=== PATIENT | female | born 1995 | race Caucasian/White ===

== ENCOUNTER 2016-12-14 19:02 | Emergency (ER) | payer OTHER ==
[2016-12-14] MEDS ORDERED: Sodium Chloride 0.9% 1000 ML 1,000 ML IV STA (19:21)
[2016-12-14] MEDS ORDERED: Sodium Chloride 0.9% 1000 ML 1,000 ML ONE (19:26)
--- NOTE | 2016-12-14 19:26 | ERPHSYRPT ---
- History of Present Illness Time Seen by Provider: 12/14/16 19:24 Source: patient Exam Limitations: no limitations Patient Subjective Stated Complaint: felt dizzy and hot earlier this evening..staes did not paass out 18 weeks . denies pain or bleeding Triage Nursing Assessment: alert and oriented. color pink, skin w/d. states feels "blah" denies abdominal pain and bleeding. Physician History: felt dizzy and hot earlier this evening..staes did not paass out 18 weeks . denies pain or bleeding Timing/Duration: today Associated Symptoms: denies symptoms Allergies/Adverse Reactions: No Known Drug Allergies Allergy (Unverified 08/07/14 22:22) Home Medications: Clonazepam 0.5 mg [Klonopin 0.5 MG] 0.5 mg PO BID 09/18/13 [History] Hx Tetanus, Diphtheria Vaccination/Date Given: No Hx Influenza Vaccination/Date Given: No Hx Pneumococcal Vaccination/Date Given: Yes - Review of Systems Constitutional: No Fever, No Chills Eyes: No Symptoms Ears, Nose, & Throat: No Symptoms Respiratory: No Cough, No Dyspnea Cardiac: No Chest Pain, No Edema, No Syncope Abdominal/Gastrointestinal: No Abdominal Pain, No Nausea, No Vomiting, No Diarrhea Genitourinary Symptoms: No Dysuria Musculoskeletal: No Back Pain, No Neck Pain Skin: No Rash Neurological: Dizziness, No Focal Weakness, No Sensory Changes Psychological: No Symptoms Endocrine: No Symptoms All Other Systems: Reviewed and Negative - Past Medical History Pertinent Past Medical History: Yes Neurological History: No Pertinent History ENT History: No Pertinent History Cardiac History: No Pertinent History Respiratory History: No Pertinent History Endocrine Medical History: No Pertinent History Musculoskeletal History: No Pertinent History GI Medical History: No Pertinent History History: No Pertinent History Psycho-Social History: Anxiety Female Reproductive Disorders: Abnormal Uterine Bleeding - Past Surgical History Past Surgical History: Yes Neuro Surgical History: No Pertinent History Cardiac: No Pertinent History Respiratory: No Pertinent History Gastrointestinal: No Pertinent History Genitourinary: No Pertinent History Musculoskeletal: No Pertinent History Female Surgical History: No Pertinent History Other Surgical History: TONSILLECTOMY - Social History Smoking Status: Current every day smoker How long have you smoked: 2 Exposure to second hand smoke: No Drug Use: none Patient Lives Alone: No - Female History Gestational Age: 18 weeks - Nursing Vital Signs Nursing Vital Signs: Initial Vital Signs Pulse Rate 88 12/14/16 19:08 Respiratory Rate 16 12/14/16 19:08 Blood Pressure 139/65 12/14/16 19:08 O2 Sat by Pulse Oximetry 100 12/14/16 19:08 Pain Scale Pain Intensity 0 - Physical Exam General Appearance: no apparent distress, alert Eye Exam: PERRL/EOMI, eyes nml inspection Ears, Nose, Throat Exam: normal ENT inspection, TMs normal, pharynx normal, moist mucous membranes Neck Exam: normal inspection, non-tender, supple, full range of motion Respiratory Exam: normal breath sounds, lungs clear, No respiratory distress Cardiovascular Exam: regular rate/rhythm, normal heart sounds, normal peripheral pulses Gastrointestinal/Abdomen Exam: soft, normal bowel sounds, No tenderness, No mass Back Exam: normal inspection, normal range of motion, No CVA tenderness, No vertebral tenderness Extremity Exam: normal inspection, normal range of motion, pelvis stable Neurologic Exam: alert, oriented x 3, cooperative, normal mood/affect, nml cerebellar function, nml station & gait, sensation nml, No motor deficits Skin Exam: normal color, warm, dry, No rash Lymphatic Exam: No adenopathy SpO2: 100 Oxygen Delivery: Room Air - Course Nursing assessment & vital signs reviewed: Yes Ordered Tests: Active Orders 24 hr Category Date Time Status CBC W DIFF Stat Lab 12/14/16 19:30 Completed CMP Stat Lab 12/14/16 19:30 Received HCG QUALITATIVE,SERUM Stat Lab 12/14/16 19:30 Received Manual Differential NC Stat Lab 12/14/16 19:30 Completed UA W/RFX UR CULTURE Stat Lab 12/14/16 19:30 Completed Urine Triage Profile Stat Lab 12/14/16 19:30 Completed Medication Summary Generic Name Dose Route Start Last Admin Trade Name Freq PRN Reason Stop Dose Admin Sodium Chloride 1,000 mls @ 999 mls/hr 12/14/16 19:21 12/14/16 19:39 Sodium Chloride 0.9% 1000 Ml IV 12/14/16 20:21 999 mls/hr .Q1H1M STA Administration Discontinued Medications Generic Name Dose Route Start Last Admin Trade Name Freq PRN Reason Stop Dose Admin Sodium Chloride Confirm 12/14/16 19:26 Sodium Chloride 0.9% 1000 Ml Administered 12/14/16 19:27 Dose 1,000 mls @ ud .ROUTE .STK-MED ONE Lab/Rad Data: Laboratory Result Diagrams 12/14/16 19:30 Laboratory Results 12/14/16 12/14/16 12/14/16 Range/Units 19:30 19:30 19:30 WBC 14.1 H (4.0-10.5) K/mm3 RBC 4.00 L (4.1-5.4) M/mm3 Hgb 12.1 (12.0-16.0) gm/dl Hct 35.5 (35-47) % MCV 88.8 (78-100) fl MCH 30.2 (26-32) pg MCHC 34.1 (32-36) g/dl RDW 13.0 (11.5-14.0) % Plt Count 238 (150-450) K/mm3 MPV 10.0 H (6-9.5) fl Ur Collection Type VOID Urine Color YELLOW (YELLOW) Urine Appearance CLEAR (CLEAR) Urine pH 5.0 (5-6) Ur Specific [place] 1.015 (1.005-1.025) Urine Protein NEGATIVE (Negative) Urine Ketones NEGATIVE (NEGATIVE) Urine Blood NEGATIVE (0-5) Misha/ul Urine Nitrite NEGATIVE (NEGATIVE) Urine Bilirubin NEGATIVE (NEGATIVE) Urine Urobilinogen NORMAL (0-1) mg/dL Ur Leukocyte Esterase NEGATIVE (NEGATIVE) Urine Culture Reflexed NO (NO) Urine Glucose NEGATIVE (NEGATIVE) mg/dL Urine Opiates Level NEG. (NEGATIVE) Ur Methadone NEG. (NEGATIVE) Urine Barbiturates NEG. (NEGATIVE) Ur Phencyclidine (PCP) NEG. (NEGATIVE) Urine Amphetamine NEG. (NEGATIVE) U Benzodiazepine Level NEG. (NEGATIVE) Urine Cocaine NEG. (NEGATIVE) Urine Marijuana (THC) NEG. (NEGATIVE) Specimen Received 12/14/160 - Progress Progress: improved Counseled pt/family regarding: diagnosis, need for follow-up, smoking cessation - Departure Time of Disposition: 20:03 Departure Disposition: Home Clinical Impression: Dizziness, with 18 completed weeks gestation Leucocytosis Qualifiers: Leukocytosis type: other Qualified Code(s): D72.828 - Other elevated white blood cell count Condition: Stable Critical Care Time: No Referrals: JENNIFER GIFFORD MD [Primary Care Provider] - Additional Instructions: Please follow the instructions given to you. Please take your medication as prescribed if given. If symptoms recur or get worse, come back to the emergency room if you cannot reach your primary care physician, or call your primary care physician for an appointment. Again if your symptoms get worse, come back to the emergency room. Thanks for visiting emergency room, and let us take care of you. Prescriptions: Amoxicillin 500 mg Cap [Amoxil 500 mg] 500 mg PO TID #21 capsule
[2016-12-14 19:42] LABS: Mean Cell Volume 88.8 fl (78-100); Platelet Count 238 K/mm3 (150-450); White Blood Count 14.1 K/mm3 (4.0-10.5)
[2016-12-14 19:49] LABS: ADD URINE CULTURE? NO (NO); Bilirubin NEGATIVE (NEGATIVE); Blood NEGATIVE Ery/ul (0-5); COMPLETE URINE MICROSCOPIC? NO; Collection Type VOID; Glucose NEGATIVE (NEGATIVE); Leukocyte Esterase NEGATIVE (NEGATIVE)
[2016-12-14 19:55] LABS: Mean Corpuscular Hemoglobin 30.2 pg (26-32)
[2016-12-14 20:08] LABS: ALKALINE PHOSPHATASE 86 U/L (46-116); ANION GAP 14.1 MEQ/L (5-15); BLOOD UREA NITROGEN 7 mg/dL (9-20); CHLORIDE 103 mEq/L (98-107); Carbon Dioxide 22.9 mEq/L (21-32); Glucose 99 MG/DL (70-110); Potassium 3.3 mEq/L (3.5-5.1); SGOT/AST 15 U/L (15-37); SGPT/ALT 23 U/L (12-78); SODIUM 137 mEq/L (136-145); Total Protein 6.4 gm/dL (6.4-8.2)
[2016-12-14 20:16] LABS: ATYPICAL LYMPHS 1 %; BAND 5 % (0.0-2.0); Eosinophil 2 % (0.00-3.0); Platelet Estimate NORMAL (NORMAL); Total Cells Counted 100
[2016-12-14 20:17] VITALS: BP 142/77; PULSE 85; O2SAT 99
== END 2016-12-14 20:17 | disposition home or self-care (01) ==
LOC: ED 19:02
DX: O26.892 Other specified pregnancy related conditions, second trimester (principal); D72.828 Other elevated white blood cell count; Z3A.18 18 weeks gestation of pregnancy; R42 Dizziness and giddiness
CPT/HCPCS: 36000; 36415; 80053; 80307; 81002; 84703; 85025; 96360; 99284

== ENCOUNTER 2017-04-10 14:26 | Observation (INO) | payer OTHER ==
[2017-04-10 15:29] LABS: Granulocyte Absolute (ANC) 11.78 (1.4-6.9); Hematocrit 38.7 % (35-47); Hemoglobin 12.9 gm/dl (12.0-16.0); Mean Cell Volume 91.5 fl (78-100); Mean Corpuscular Hemoglobin 30.5 pg (26-32); Mean Corpuscular Hgb Concent. 33.3 g/dl (32-36); Mean Platelet Volume 12.2 fl (6-9.5); Platelet Count 194 K/mm3 (150-450); Red Blood Count 4.23 M/mm3 (4.1-5.4); Red Cell Distribution Width 13.5 % (11.5-14.0)
--- NOTE | 2017-04-10 15:50 | XRAY ---
Indication: Evaluate EFRAIN. Limited OB ultrasound performed to evaluate EFRAIN. There is a single viable intrauterine currently in cephalic presentation. heart rate 129 BPM. Four-quadrant EFRAIN is 16.5 cm, previously 10.6 cm on April 03, 2017 exam.
[2017-04-10 15:51] LABS: ALBUMIN 2.4 g/dL (3.4-5.0); ALKALINE PHOSPHATASE 177 U/L (46-116); ANION GAP 11.4 MEQ/L (5-15); BLOOD UREA NITROGEN 6 mg/dL (9-20); CHLORIDE 104 mEq/L (98-107); Calcium 9.5 mg/dL (8.5-10.1); Carbon Dioxide 26.9 mEq/L (21-32); Creatinine 1 0.66 mg/dl (0.55-1.30); EST GLOMERULAR FILTRATION RATE > 60 ML/MIN; Glucose 71 MG/DL (70-110); SGOT/AST 18 U/L (15-37); SGPT/ALT 11 U/L (12-78); SODIUM 138 mEq/L (136-145); Total Protein 6.4 gm/dL (6.4-8.2); Uric Acid 4.8 mg/dL (2.6-6.0)
[2017-04-10 16:56] LABS: Eosinophil 2 % (0.00-3.0); Lymphocytes 19 % (24-44); Monocyte 9 % (0.0-12.0); Neutrophils 70 % (36.0-66.0); Platelet Estimate NORMAL (NORMAL); Total Cells Counted 100; Toxic Granulation 1+
[2017-04-10 18:00] VITALS: BP 140/76; PULSE 85
== END 2017-04-10 18:02 ==
LOC: OB 14:26
PROVIDERS: ADMIT Family Medicine; ATTEND Family Medicine
DX: Z34.83 Encounter for supervision of other normal pregnancy, third trimester (principal)
CPT/HCPCS: 36415; 59025; 76815; 80053; 84550; 85025; G0378

== ENCOUNTER 2019-09-23 12:24 | Emergency (ER) | payer OTHER ==
--- NOTE | 2019-09-23 12:38 | ERPHSYRPT ---
- History of Present Illness Time Seen by Provider: 09/23/19 12:34 Source: patient Exam Limitations: no limitations Physician History: This is a 24-year-old white female who yesterday slipped on her steps injuring her left ankle. Patient went to [facility] and had an x-ray and she reports that she was told she has a left ankle sprain. They placed a ankle air splint and she has been wearing this since yesterday. Patient slipped today and twisted her left ankle again with the brace in place. She is concerned because there is more pain after her fall today. Patient denies any other area of injury. Method of Injury: fell Occurred: this morning Quality: constant, aching Severity of Pain-Max: moderate Severity of Pain-Current: mild Lower Extremities Pain: ankle: left Modifying Factors: Improves With: movement Associated Symptoms: other (Patient is able to bear weight but hurts to do so) Allergies/Adverse Reactions: No Known Drug Allergies Allergy (Verified 09/23/19 12:40) Home Medications: Norgestimate-Ethinyl Estradiol [Tri-Sprintec] 1 tab PO DAILY 09/23/19 [History] clonazePAM [Clonazepam] 0.5 mg PO TID 09/23/19 [History] Hx Tetanus, Diphtheria Vaccination/Date Given: No Hx Influenza Vaccination/Date Given: No Hx Pneumococcal Vaccination/Date Given: Yes Travel Risk - International Travel Have you traveled outside of the country in past 3 weeks: No (N) If Yes, where;: N - Coronavirus Screening Are you exhibiting any of the following symptoms?: No Close contact with a COVID-19 positive Pt in past 14-21 Days: No - Review of Systems Constitutional: No Symptoms Eyes: No Symptoms Ears, Nose, & Throat: No Symptoms Respiratory: No Symptoms Cardiac: No Symptoms Abdominal/Gastrointestinal: No Symptoms Genitourinary Symptoms: No Symptoms Musculoskeletal: Fall, Injury (Left ankle) Skin: No Symptoms Neurological: No Symptoms Psychological: No Symptoms Endocrine: No Symptoms Hematologic/Lymphatic: No Symptoms Immunological/Allergic: No Symptoms All Other Systems: Reviewed and Negative - Past Medical History Pertinent Past Medical History: Yes Neurological History: No Pertinent History ENT History: No Pertinent History Cardiac History: No Pertinent History Respiratory History: No Pertinent History Endocrine Medical History: No Pertinent History Musculoskeletal History: No Pertinent History GI Medical History: No Pertinent History History: No Pertinent History Psycho-Social History: Anxiety Female Reproductive Disorders: Abnormal Uterine Bleeding - Past Surgical History Past Surgical History: Yes Neuro Surgical History: No Pertinent History Cardiac: No Pertinent History Respiratory: No Pertinent History Gastrointestinal: No Pertinent History Genitourinary: No Pertinent History Musculoskeletal: No Pertinent History Female Surgical History: No Pertinent History Other Surgical History: TONSILLECTOMY - Social History Smoking Status: Current every day smoker How long have you smoked: 3 yrs Exposure to second hand smoke: Yes Drug Use: none Patient Lives Alone: No - Female History Hx Now: No - Nursing Vital Signs Nursing Vital Signs: Initial Vital Signs Temperature 98.5 F 09/23/19 12:31 Pulse Rate 71 09/23/19 12:31 Respiratory Rate 16 09/23/19 12:31 Blood Pressure 143/63 09/23/19 12:31 O2 Sat by Pulse Oximetry 99 09/23/19 12:31 Pain Scale Pain Intensity 8 - Physical Exam General Appearance: no apparent distress, alert, anxiety Eyes, Ears, Nose, Throat Exam: normal ENT inspection, moist mucous membranes Neck Exam: normal inspection, non-tender, supple, full range of motion Cardiovascular/Respiratory Exam: chest non-tender, no respiratory distress Gastrointestinal/Abdominal Exam: non-tender Back Exam: normal inspection, normal range of motion, No CVA tenderness, No vertebral tenderness Hips Exam: bilateral: non-tender, normal inspection, normal range of motion, no evidence of injury Legs Exam: bilateral leg: non-tender, normal inspection, normal range of motion, no evidence of injury Knees Exam: bilateral knee: non-tender, normal inspection, normal range of motion, no evidence of injury Ankle Exam: right ankle: non-tender, normal inspection, normal range of motion, no evidence of injury, left ankle: limited range of motion, soft tissue tenderness Foot Exam: bilateral foot: non-tender, normal inspection, normal range of motion, no evidence of injury Neuro/Tendon Exam: normal sensation, normal motor functions, normal tendon functions, responds to pain, no evidence tendon injury Mental Status Exam: alert, oriented x 3, cooperative Skin Exam: normal color, warm, dry SpO2 Interpretation: normal O2 Delivery: Room Air Ordered Tests: Active Orders 24 hr Category Date Time Status ANKLE (3 VIEWS) Stat Exams 09/23/19 12:32 Completed - Progress Progress Note: 09/23/19 13:03 X-ray of left ankle reveals no evidence of any acute fracture or dislocation Counseled pt/family regarding: diagnosis, need for follow-up, rad results - Departure Departure Disposition: Home Clinical Impression: Left ankle sprain Condition: Stable Critical Care Time: No Referrals: JENNIFER GIFFORD MD [Primary Care Provider] - Additional Instructions: Ice pack to the left ankle 3 times a day for the next 48 hours. Use Tylenol and ibuprofen for pain control. Keep the left lower extremity elevated above the level of heart when not ambulating. Wear the ankle brace while ambulating. Follow-up with [facility] or your primary care physician for persistent symptoms.
--- NOTE | 2019-09-23 13:02 | XRAY ---
Indication: Pain following fall. Comparison: None 3 view right ankle obtained. No bony, articular, or soft tissue abnormalities.
[2019-09-23 13:18] VITALS: BP 135/79; PULSE 68; O2SAT 96
== END 2019-09-23 13:18 | disposition home or self-care (01) ==
LOC: ED 12:24
DX: S93.402A Sprain of unspecified ligament of left ankle, initial encounter (principal); W01.0XXA Fall on same level from slipping, tripping and stumbling without subsequent striking against object, initial encounter; Y93.9 Activity, unspecified; Y92.9 Unspecified place or not applicable; Z72.0 Tobacco use
CPT/HCPCS: 73610; 99283

== ENCOUNTER 2020-06-19 23:48 | Emergency (ER) | payer OTHER ==
[2020-06-20] MEDS ORDERED: Sodium Chloride 0.9% 1000 ML 1,000 ML IV STA (00:11)
[2020-06-20] MEDS ORDERED: Sodium Chloride 0.9% 1000 ML 1,000 ML ONE (00:36)
[2020-06-20 00:38] LABS: Hematocrit 38.2 % (35-47); Hemoglobin 12.4 gm/dl (12.0-16.0); Mean Cell Volume 85.5 fl (78-100); Mean Corpuscular Hemoglobin 27.7 pg (26-32); Mean Corpuscular Hgb Concent. 32.5 g/dl (32-36); Mean Platelet Volume 9.4 fl (7.5-11.0); Platelet Count 372 K/mm3 (150-450); Red Blood Count 4.47 M/mm3 (4.1-5.4); Red Cell Distribution Width 14.1 % (11.5-14.0)
[2020-06-20 00:42] LABS: Appearance CLEAR (CLEAR); Bilirubin NEGATIVE (NEGATIVE); Blood SMALL Ery/ul (0-5); Glucose NEGATIVE (NEGATIVE); Hyaline Casts 0-2 /LPF (0-2); Ketones NEGATIVE (NEGATIVE); Leukocyte Esterase NEGATIVE (NEGATIVE); Mucus SLIGHT /HPF (NEGATIVE); Nitrite NEGATIVE (NEGATIVE); Protein,Urine Dip 30 (Negative); Specific Gravity 1.024 (1.005-1.025); Urobilinogen NEGATIVE mg/dL (0-1)
[2020-06-20 00:44] LABS: Bacteria RARE /HPF (NEGATIVE)
[2020-06-20 00:50] LABS: INR 1.15 (0.8-3.0)
[2020-06-20 00:53] LABS: ALBUMIN 3.8 g/dL (3.5-5.0); ALKALINE PHOSPHATASE 116 U/L (38-126); AMYLASE 52 U/L (30-110); ANION GAP 8.8 MEQ/L (5-15); BLOOD UREA NITROGEN 10 mg/dL (7-17); CHLORIDE 105 mmol/L (98-107); Calcium 8.8 mg/dL (8.4-10.2); Carbon Dioxide 26 mmol/L (22-30); Creatinine 1 0.59 mg/dL (0.52-1.04); EST GLOMERULAR FILTRATION RATE > 60.0 ML/MIN; Glucose 98 mg/dL (74-106); LIPASE 72 U/L (23-300); Potassium 3.7 mmol/L (3.5-5.1); SGOT/AST 14 U/L (14-36); SGPT/ALT 11 U/L (0-35); SODIUM 136 mmol/L (137-145); Total Protein 6.9 g/dL (6.3-8.2)
[2020-06-20 00:55] LABS: Amphetamine,Urine NEGATIVE (NEGATIVE); Barbiturate,Urine NEGATIVE (NEGATIVE); Benzodiazepine,Urine NEGATIVE (NEGATIVE); Cocaine,Urine NEGATIVE (NEGATIVE); Methadone,Urine NEGATIVE (NEGATIVE); Opiate,Urine NEGATIVE (NEGATIVE); PCP,Urine NEGATIVE (NEGATIVE); THC,Urine NEGATIVE (NEGATIVE)
--- NOTE | 2020-06-20 01:14 | ERPHSYRPT ---
- History of Present Illness Time Seen by Provider: 06/20/20 00:25 Historian: patient Exam Limitations: no limitations Patient Subjective Stated Complaint: Patient states " I have been having lower ABD pain for several days now and it continues to get worse and it feels like my insides are going to fall out". Triage Nursing Assessment: Patient arrived to ED and ambulated to room without difficulty. Patient A/O times 4. Patient laughing with securities underwriter and cooperative. Patient able to follow instructions without difficulty. Lungs clear bilateral A /P throughout. Patient denies SOB. Cap refill < 3 seconds. No S/S of respiratory distress noted. Patient denies chest pain. Patient with lower ABD pain above pubic bone and has more pain in the middle and left side upon palpitation of ABD. Patient states she had discomfort when RN pushed in ABD and had rebound pain. ABD soft, round, non-distended. Patient denies loose stools or constipation. Patient denies any change in appetite or fluid intake. Patient states she has had some frequency with going to bathroom to pee. Patient denies pain or burning upon urination. Urine collected upon arrival. Urine cloudy, yellow urine. No odor detected. + Radial and pedal pulses noted bilateral. No edema noted. Patient denies any N/V. Patient denies any dizziness or H/A.Patient stated she feels like she is cramping from having to start her period but hasn't started. Patient stated she is on oral control and that she is on her 7 day of sugar pills and stated she should start anytime. Patient denies any trauma or injury to ABD. Oral mucosa moist, pink. Skin turgor < 3 seconds. No S/S of dehydration upon visual. Physician History: Is a 24-year-old female who presents with a complaint of some left lower quadrant abdominal discomfort for 2 days. She has noticed that there seems to be some increased pain with walking or with riding in a car that hits bumps etc. she has pain in the left lower quadrant but also has some general pain she has had no nausea vomiting or diarrhea no fever chills or sweats no change in her urination except maybe an increased frequency. She has no previous abdominal or pelvic surgeries. Allergies/Adverse Reactions: No Known Drug Allergies Allergy (Verified 10/04/19 07:49) Home Medications: Norgestimate-Ethinyl Estradiol [Tri-Sprintec] 1 ea DAILY 10/04/19 [History] clonazePAM [Clonazepam] 1 ea TID 10/04/19 [History] Hx Tetanus, Diphtheria Vaccination/Date Given: Yes Hx Influenza Vaccination/Date Given: No Hx Pneumococcal Vaccination/Date Given: No Immunizations Up to Date: Yes Travel Risk - International Travel Have you traveled outside of the country in past 3 weeks: No - Coronavirus Screening Are you exhibiting any of the following symptoms?: No Close contact with a COVID-19 positive Pt in past 14-21 Days: No - Vaccine Status Have you recieved a Covid-19 vaccination: No - Past Medical History Pertinent Past Medical History: Yes Neurological History: No Pertinent History ENT History: No Pertinent History Cardiac History: No Pertinent History Respiratory History: No Pertinent History Endocrine Medical History: No Pertinent History Musculoskeletal History: No Pertinent History GI Medical History: No Pertinent History History: No Pertinent History Psycho-Social History: Anxiety Female Reproductive Disorders: No Pertinent History - Past Surgical History Past Surgical History: Yes Neuro Surgical History: No Pertinent History Cardiac: No Pertinent History Respiratory: No Pertinent History Gastrointestinal: No Pertinent History Genitourinary: No Pertinent History Musculoskeletal: No Pertinent History Female Surgical History: No Pertinent History - Social History Smoking Status: Current every day smoker How long have you smoked: 8 years Exposure to second hand smoke: Yes Drug Use: none Patient Lives Alone: No - Female History Hx Last Menstrual Period: 05/19/20 Hx Now: No - Nursing Vital Signs Nursing Vital Signs: Initial Vital Signs Temperature 98.3 F 06/20/20 00:13 Pulse Rate 111 H 06/20/20 00:13 Respiratory Rate 20 06/20/20 00:13 Blood Pressure 145/89 06/20/20 00:13 O2 Sat by Pulse Oximetry 99 06/20/20 00:13 Pain Scale Pain Intensity 8 - Physical Exam SpO2: 99 - Radiology Ultrasound Exam OB Ultrasound: Other (Ultrasound shows a 5-week 2 days gestational sac no pole identified at this point) Ordered Tests: Active Orders 24 hr Category Date Time Status IV Insertion STAT Care 06/20/20 00:11 Active OB <14 WKS 1ST GESTATION [US] Stat Exams 06/20/20 Ordered AMYLASE Stat Lab 06/20/20 00:30 Completed CBC W DIFF Stat Lab 06/20/20 00:30 Completed CMP Stat Lab 06/20/20 00:30 Completed CULTURE,URINE Stat Lab 06/20/20 00:25 Received HCG, Quantitative (Inhouse) Stat Lab 06/20/20 00:35 Completed HCG,QUALITATIVE URINE Stat Lab 06/20/20 00:25 Completed LIPASE Stat Lab 06/20/20 00:30 Completed Lactic Acid Stat Lab 06/20/20 00:53 Completed Manual Differential NC Stat Lab 06/20/20 00:30 Completed PROTIME WITH INR Stat Lab 06/20/20 00:30 Completed UA W/RFX UR CULTURE Stat Lab 06/20/20 00:25 Completed Urine Triage Profile Stat Lab 06/20/20 00:25 Completed Medication Summary Discontinued Medications Generic Name Dose Route Start Last Admin Trade Name Freq PRN Reason Stop Dose Admin Sodium Chloride 1,000 mls @ 999 mls/hr 06/20/20 00:11 06/20/20 00:38 Sodium Chloride 0.9% 1000 Ml IV 06/20/20 01:11 999 mls/hr .Q1H1M STA Administration Sodium Chloride Confirm 06/20/20 00:36 Sodium Chloride 0.9% 1000 Ml Administered 06/20/20 00:37 Dose 1,000 mls @ ud .ROUTE .STK-MED ONE Lab/Rad Data: Laboratory Result Diagrams 06/20/20 00:30 06/20/20 00:30 Laboratory Results 06/20/20 06/20/20 06/20/20 Range/Units 00:53 00:35 00:30 WBC (4.0-10.5) K/mm3 RBC (4.1-5.4) M/mm3 Hgb (12.0-16.0) gm/dl Hct (35-47) % MCV (78-100) fl MCH (26-32) pg MCHC (32-36) g/dl RDW (11.5-14.0) % Plt Count (150-450) K/mm3 MPV (7.5-11.0) fl Segmented Neutrophils (36.0-66.0) % Band Neutrophils (0.0-2.0) % Lymphocytes (Manual) (24-44) % Monocytes (Manual) (0.0-12.0) % Eosinophils (Manual) (0.00-3.0) % Basophils (Manual) (0.0-1.0) % Platelet Estimate (NORMAL) RBC Morphology PT 13.0 H (9.95-12.35) SECONDS INR 1.15 (0.8-3.0) Sodium (137-145) mmol/L Potassium (3.5-5.1) mmol/L Chloride (98-107) mmol/L Carbon Dioxide (22-30) mmol/L Anion Gap (5-15) MEQ/L BUN (7-17) mg/dL Creatinine (0.52-1.04) mg/dL Estimated GFR ML/MIN Glucose (74-106) mg/dL Lactic Acid 1.2 (0.4-2.0) Calcium (8.4-10.2) mg/dL Total Bilirubin (0.2-1.3) mg/dL AST (14-36) U/L ALT (0-35) U/L Alkaline Phosphatase (38-126) U/L Serum Total Protein (6.3-8.2) g/dL Albumin (3.5-5.0) g/dL Amylase (30-110) U/L Lipase (23-300) U/L Beta HCG, Quant 4830.7 mIU/ml Urine Color (YELLOW) Urine Appearance (CLEAR) Urine pH (5-6) Ur Specific [place] (1.005-1.025) Urine Protein (Negative) Urine Ketones (NEGATIVE) Urine Blood (0-5) Misha/ul Urine Nitrite (NEGATIVE) Urine Bilirubin (NEGATIVE) Urine Urobilinogen (0-1) mg/dL Ur Leukocyte Esterase (NEGATIVE) Urine WBC (Auto) (0-5) /HPF Urine RBC (Auto) (0-2) /HPF U Hyaline Cast (Auto) (0-2) /LPF U Epithel Cells (Auto) (FEW) /HPF Urine Bacteria (Auto) (NEGATIVE) /HPF Urine Mucus (Auto) (NEGATIVE) /HPF Urine Culture Reflexed (NO) Urine Glucose (NEGATIVE) mg/dL Urine HCG, Qual (Negative) Urine Opiates Level (NEGATIVE) Ur Methadone (NEGATIVE) Urine Barbiturates (NEGATIVE) Ur Phencyclidine (PCP) (NEGATIVE) Urine Amphetamine (NEGATIVE) U Benzodiazepine Level (NEGATIVE) Urine Cocaine (NEGATIVE) Urine Marijuana (THC) (NEGATIVE) 06/20/20 06/20/20 06/20/20 Range/Units 00:30 00:30 00:25 WBC 15.0 H (4.0-10.5) K/mm3 RBC 4.47 (4.1-5.4) M/mm3 Hgb 12.4 (12.0-16.0) gm/dl Hct 38.2 (35-47) % MCV 85.5 (78-100) fl MCH 27.7 (26-32) pg MCHC 32.5 (32-36) g/dl RDW 14.1 H (11.5-14.0) % Plt Count 372 (150-450) K/mm3 MPV 9.4 (7.5-11.0) fl Segmented Neutrophils 57 (36.0-66.0) % Band Neutrophils 1 (0.0-2.0) % Lymphocytes (Manual) 30 (24-44) % Monocytes (Manual) 7 (0.0-12.0) % Eosinophils (Manual) 4 H (0.00-3.0) % Basophils (Manual) 1 (0.0-1.0) % Platelet Estimate NORMAL (NORMAL) RBC Morphology NORMAL PT (9.95-12.35) SECONDS INR (0.8-3.0) Sodium 136 L (137-145) mmol/L Potassium 3.7 (3.5-5.1) mmol/L Chloride 105 (98-107) mmol/L Carbon Dioxide 26 (22-30) mmol/L Anion Gap 8.8 (5-15) MEQ/L BUN 10 (7-17) mg/dL Creatinine 0.59 (0.52-1.04) mg/dL Estimated GFR > 60.0 ML/MIN Glucose 98 (74-106) mg/dL Lactic Acid (0.4-2.0) Calcium 8.8 (8.4-10.2) mg/dL Total Bilirubin 0.20 (0.2-1.3) mg/dL AST 14 (14-36) U/L ALT 11 (0-35) U/L Alkaline Phosphatase 116 (38-126) U/L Serum Total Protein 6.9 (6.3-8.2) g/dL Albumin 3.8 (3.5-5.0) g/dL Amylase 52 (30-110) U/L Lipase 72 (23-300) U/L Beta HCG, Quant mIU/ml Urine Color (YELLOW) Urine Appearance (CLEAR) Urine pH (5-6) Ur Specific [place] (1.005-1.025) Urine Protein (Negative) Urine Ketones (NEGATIVE) Urine Blood (0-5) Misha/ul Urine Nitrite (NEGATIVE) Urine Bilirubin (NEGATIVE) Urine Urobilinogen (0-1) mg/dL Ur Leukocyte Esterase (NEGATIVE) Urine WBC (Auto) (0-5) /HPF Urine RBC (Auto) (0-2) /HPF U Hyaline Cast (Auto) (0-2) /LPF U Epithel Cells (Auto) (FEW) /HPF Urine Bacteria (Auto) (NEGATIVE) /HPF Urine Mucus (Auto) (NEGATIVE) /HPF Urine Culture Reflexed (NO) Urine Glucose (NEGATIVE) mg/dL Urine HCG, Qual (Negative) Urine Opiates Level NEGATIVE (NEGATIVE) Ur Methadone NEGATIVE (NEGATIVE) Urine Barbiturates NEGATIVE (NEGATIVE) Ur Phencyclidine (PCP) NEGATIVE (NEGATIVE) Urine Amphetamine NEGATIVE (NEGATIVE) U Benzodiazepine Level NEGATIVE (NEGATIVE) Urine Cocaine NEGATIVE (NEGATIVE) Urine Marijuana (THC) NEGATIVE (NEGATIVE) 06/20/20 06/20/20 Range/Units 00:25 00:25 WBC (4.0-10.5) K/mm3 RBC (4.1-5.4) M/mm3 Hgb (12.0-16.0) gm/dl Hct (35-47) % MCV (78-100) fl MCH (26-32) pg MCHC (32-36) g/dl RDW (11.5-14.0) % Plt Count (150-450) K/mm3 MPV (7.5-11.0) fl Segmented Neutrophils (36.0-66.0) % Band Neutrophils (0.0-2.0) % Lymphocytes (Manual) (24-44) % Monocytes (Manual) (0.0-12.0) % Eosinophils (Manual) (0.00-3.0) % Basophils (Manual) (0.0-1.0) % Platelet Estimate (NORMAL) RBC Morphology PT (9.95-12.35) SECONDS INR (0.8-3.0) Sodium (137-145) mmol/L Potassium (3.5-5.1) mmol/L Chloride (98-107) mmol/L Carbon Dioxide (22-30) mmol/L Anion Gap (5-15) MEQ/L BUN (7-17) mg/dL Creatinine (0.52-1.04) mg/dL Estimated GFR ML/MIN Glucose (74-106) mg/dL Lactic Acid (0.4-2.0) Calcium (8.4-10.2) mg/dL Total Bilirubin (0.2-1.3) mg/dL AST (14-36) U/L ALT (0-35) U/L Alkaline Phosphatase (38-126) U/L Serum Total Protein (6.3-8.2) g/dL Albumin (3.5-5.0) g/dL Amylase (30-110) U/L Lipase (23-300) U/L Beta HCG, Quant mIU/ml Urine Color YELLOW (YELLOW) Urine Appearance CLEAR (CLEAR) Urine pH 5.0 (5-6) Ur Specific [place] 1.024 (1.005-1.025) Urine Protein 30 (Negative) Urine Ketones NEGATIVE (NEGATIVE) Urine Blood SMALL (0-5) Misha/ul Urine Nitrite NEGATIVE (NEGATIVE) Urine Bilirubin NEGATIVE (NEGATIVE) Urine Urobilinogen NEGATIVE (0-1) mg/dL Ur Leukocyte Esterase NEGATIVE (NEGATIVE) Urine WBC (Auto) NONE (0-5) /HPF Urine RBC (Auto) NONE (0-2) /HPF U Hyaline Cast (Auto) 0-2 (0-2) /LPF U Epithel Cells (Auto) NONE (FEW) /HPF Urine Bacteria (Auto) RARE (NEGATIVE) /HPF Urine Mucus (Auto) SLIGHT (NEGATIVE) /HPF Urine Culture Reflexed YES (NO) Urine Glucose NEGATIVE (NEGATIVE) mg/dL Urine HCG, Qual POSITIVE (Negative) Urine Opiates Level (NEGATIVE) Ur Methadone (NEGATIVE) Urine Barbiturates (NEGATIVE) Ur Phencyclidine (PCP) (NEGATIVE) Urine Amphetamine (NEGATIVE) U Benzodiazepine Level (NEGATIVE) Urine Cocaine (NEGATIVE) Urine Marijuana (THC) (NEGATIVE) - Progress Progress: improved - Departure Clinical Impression: Early stage of Condition: Stable Critical Care Time: No Referrals: MONY RALPH [Primary Care Provider] - Instructions: How to Plan and Prepare for a Healthy
[2020-06-20 01:32] LABS: BAND 1 % (0.0-2.0); Basophil 1 % (0.0-1.0); Eosinophil 4 % (0.00-3.0); Lymphocytes 30 % (24-44); Monocyte 7 % (0.0-12.0); Neutrophils 57 % (36.0-66.0); Platelet Estimate NORMAL (NORMAL); Total Cells Counted 100
[2020-06-20 03:05] VITALS: BP 111/64; PULSE 93; O2SAT 98
--- NOTE | 2020-06-20 20:44 | XRAY ---
Exam: OB ultrasound less than 14 weeks from 06/20/2020. Comparison: None from this . Indication: 24-year-old female with first trimester ; complains of lower abdominal pain; beta hCG is 4000. Findings: The maternal uterus is anteflexed. There is a small apparent oval-shaped gestational sac within the central aspect of the upper uterine segment measuring 7.4 mm x 5.9 mm x 8.8 mm with a mean gestational sac diameter of 7.4 mm consistent with a gestational age of 5 weeks, 2 days. A definite intrauterine pole or cardiac activity is not identified as of yet. I see no fluid within the lower endometrial canal or cervical canal. No free fluid is seen within the cul-de-sac. The maternal left ovary measures 2.4 cm x 4.6 cm x 3.8 cm and contains a 1.6 cm x 2.05 cm cystic lesion suggestive of a corpus luteal cyst. Normal color blood flow and Doppler signal are seen within the maternal left ovary. The right pelvic adnexa demonstrates a 2.9 cm x 0.8 cm x 2.9 cm oval-shaped ovary. Normal color blood flow and Doppler signal are seen within the maternal right ovary. Impression: 1. There is apparent early gestational sac within the central aspect of the upper uterine segment with a mean diameter is 7.4 mm. This is consistent with a gestational age of 5 weeks 2 days plus or minus 0 weeks 3 days yielding an estimated due date of 02/18/2021. No pole or cardiac activity is identified as of yet. Consider a follow-up OB ultrasound in 2-3 weeks for continued monitoring. 2. Both maternal ovaries were identified. There appears to be a small corpus luteal cyst within the left ovary. I see no evidence of maternal ovarian torsion. 3. No free intraperitoneal fluid is seen within the cul-de-sac.
== END 2020-06-20 03:15 | disposition home or self-care (01) ==
LOC: ED 23:48 → MERGE 23:48 → ED 06-20 03:15
DX: R10.32 Left lower quadrant pain (principal)
CPT/HCPCS: 36000; 36415; 76801; 80053; 80307; 81001; 82150; 83605; 83690; 84702; 84703; 85025; 85610; 87086; 96360; 99284

== ENCOUNTER 2021-01-16 13:07 | Observation (INO) | payer OTHER ==
[2021-01-16 15:24] LABS: ALBUMIN 3.5 g/dL (3.5-5.0); ALKALINE PHOSPHATASE 261 U/L (38-126); ANION GAP 11.4 MEQ/L (5-15); BLOOD UREA NITROGEN 4 mg/dL (7-17); CHLORIDE 104 mmol/L (98-107); Calcium 8.7 mg/dL (8.4-10.2); Carbon Dioxide 24 mmol/L (22-30); Creatinine 1 0.46 mg/dL (0.52-1.04); EST GLOMERULAR FILTRATION RATE > 60.0 ML/MIN; Glucose 142 mg/dL (74-106); Potassium 4.1 mmol/L (3.5-5.1); SGOT/AST 15 U/L (14-36); SGPT/ALT 14 U/L (0-35); SODIUM 135 mmol/L (137-145); Total Protein 6.9 g/dL (6.3-8.2); Uric Acid 3.9 mg/dL (2.6-6.0)
[2021-01-16 15:40] LABS: Amphetamine,Urine NEGATIVE (NEGATIVE); Barbiturate,Urine NEGATIVE (NEGATIVE); Benzodiazepine,Urine NEGATIVE (NEGATIVE); Cocaine,Urine NEGATIVE (NEGATIVE); Creatinine, Urine Random 117.4 mg/dl; Methadone,Urine NEGATIVE (NEGATIVE); Opiate,Urine NEGATIVE (NEGATIVE); PCP,Urine NEGATIVE (NEGATIVE); THC,Urine NEGATIVE (NEGATIVE)
[2021-01-16 15:57] LABS: ABO TYPING A; Antibody Screen NEGATIVE (NEGATIVE); RH TYPING POSITIVE
--- NOTE | 2021-01-16 16:55 | XRAY ---
Indication: growth and anatomy. No care. Two-dimensional OB ultrasound performed. Comparison: June 20, 2020. There is now a single intrauterine in cephalic presentation. Normal four-chamber heart with heart rate 157 BPM. Normal three-vessel cord and cord insertion. Visualized head, spine, stomach, kidneys, and bladder are unremarkable. Anterior placenta without abruption/previa. BPD measures 8.47 cm corresponding to 34 weeks 1 day. HC measures 30.58 cm corresponding to 34 weeks 0 days. AC measures 31.27 cm corresponding to 35 weeks 1 day. FL measures 6.7D centimeter corresponding to 34 weeks 3 days. Estimated weight 5 lbs. 9 oz., +/-13 ounces. Approximately 27 percentile. EFRAIN is 12.8 cm. Impression: Single viable intrauterine with mean gestational age 34 weeks 3 days. Normal progression of . No gross anomalies.
[2021-01-16 17:12] VITALS: BP 139/86; PULSE 103
[2021-01-17 13:08] LABS: HIV Screen 4th Generation wRfx Non Reactive (Non Reactive)
[2021-01-17 13:20] LABS: HBsAg Screen Negative (Negative); Hep C Virus Ab <0.1 s/co ratio (0.0-0.9)
[2021-01-17 20:36] LABS: Varicella Zoster IgG 2076 index (Immune >165)
[2021-01-18 07:29] LABS: Rubella Antibodies, IgG 6.25 index (Immune >0.99)
== END 2021-01-16 17:20 | disposition home or self-care (01) ==
LOC: OB 14:05 → EDSTATUS 14:05 → OB 14:35
PROVIDERS: ADMIT Obstetrics & Gynecology; ATTEND Obstetrics & Gynecology
DX: Z34.83 Encounter for supervision of other normal pregnancy, third trimester (principal); Z3A.35 35 weeks gestation of pregnancy; R80.9 Proteinuria, unspecified
CPT/HCPCS: 36415; 59025; 76805; 80053; 80307; 82570; 83020; 83036; 84156; 84550; 86762; 86787; 86850; 86900; 86901; 87340; 87389; G0378; G0472; 86803

== ENCOUNTER 2021-01-17 22:58 | Observation (INO) | payer OTHER ==
[2021-01-17 23:34] VITALS: O2SAT 98
[2021-01-18 01:04] VITALS: BP 137/72; PULSE 74
== END 2021-01-18 01:00 | disposition home or self-care (01) ==
LOC: OB 22:58
PROVIDERS: ADMIT Obstetrics & Gynecology; ATTEND Obstetrics & Gynecology
DX: O12.13 Gestational proteinuria, third trimester (principal); O14.93 Unspecified pre-eclampsia, third trimester; Z3A.35 35 weeks gestation of pregnancy
CPT/HCPCS: G0378 ×3

== ENCOUNTER 2021-01-21 15:14 | Observation (INO) | payer OTHER ==
[2021-01-21 16:25] VITALS: BP 142/75; PULSE 103
== END 2021-01-21 16:05 | disposition home or self-care (01) ==
LOC: OB 15:14
PROVIDERS: ADMIT Obstetrics & Gynecology; ATTEND Obstetrics & Gynecology
DX: O24.419 Gestational diabetes mellitus in pregnancy, unspecified control (principal); Z3A.37 37 weeks gestation of pregnancy
CPT/HCPCS: 59025; G0378

== ENCOUNTER 2021-01-25 14:01 | Observation (INO) | payer OTHER ==
[2021-01-25 15:42] LABS: Hematocrit 35.4 % (35-47); Hemoglobin 10.7 gm/dl (12.0-16.0); Mean Cell Volume 82.5 fl (78-100); Mean Corpuscular Hemoglobin 24.9 pg (26-32); Mean Corpuscular Hgb Concent. 30.2 g/dl (32-36); Mean Platelet Volume 10.9 fl (7.5-11.0); Platelet Count 342 K/mm3 (150-450); Red Blood Count 4.29 M/mm3 (4.1-5.4); Red Cell Distribution Width 15.3 % (11.5-14.0); White Blood Count 15.7 K/mm3 (4.0-10.5)
== END 2021-01-25 16:30 | disposition home or self-care (01) ==
LOC: WHC 14:01 → OB 14:54
PROVIDERS: ADMIT Obstetrics & Gynecology; ATTEND Obstetrics & Gynecology
DX: Z34.83 Encounter for supervision of other normal pregnancy, third trimester (principal); Z3A.38 38 weeks gestation of pregnancy
CPT/HCPCS: 36415; 59025; 82947; 85027; 87081; 99213; G0378; 81002

== ENCOUNTER 2021-01-29 14:05 | Observation (INO) | payer OTHER ==
[2021-01-29 15:37] VITALS: BP 127/82; PULSE 106; O2SAT 96
== END 2021-01-29 14:55 | disposition home or self-care (01) ==
LOC: OB 14:05
PROVIDERS: ADMIT Obstetrics & Gynecology; ATTEND Obstetrics & Gynecology
DX: O24.419 Gestational diabetes mellitus in pregnancy, unspecified control (principal); Z3A.37 37 weeks gestation of pregnancy
CPT/HCPCS: 59025; G0378

== ENCOUNTER 2021-02-06 12:36 | Inpatient (IN) | payer OTHER ==
[2021-02-06 14:45] LABS: ALBUMIN 3.5 g/dL (3.5-5.0); ALKALINE PHOSPHATASE 269 U/L (38-126); ANION GAP 10.4 MEQ/L (5-15); CHLORIDE 105 mmol/L (98-107); Calcium 8.5 mg/dL (8.4-10.2); Carbon Dioxide 22 mmol/L (22-30); Creatinine 1 0.46 mg/dL (0.52-1.04); EST GLOMERULAR FILTRATION RATE > 60.0 ML/MIN; Glucose 73 mg/dL (74-106); Potassium 3.9 mmol/L (3.5-5.1); SGOT/AST 13 U/L (14-36); SGPT/ALT 6 U/L (0-35); SODIUM 134 mmol/L (137-145); Total Protein 6.9 g/dL (6.3-8.2)
[2021-02-06 14:46] LABS: BLOOD UREA NITROGEN < 2 mg/dL (7-17)
[2021-02-06 14:51] LABS: Hematocrit 38.3 % (35-47); Hemoglobin 11.8 gm/dl (12.0-16.0); Mean Cell Volume 81.7 fl (78-100); Mean Corpuscular Hemoglobin 25.2 pg (26-32); Mean Corpuscular Hgb Concent. 30.8 g/dl (32-36); Mean Platelet Volume 11.5 fl (7.5-11.0); Platelet Count 336 K/mm3 (150-450); Red Blood Count 4.69 M/mm3 (4.1-5.4); Red Cell Distribution Width 15.4 % (11.5-14.0)
[2021-02-06 15:55] LABS: Appearance CLEAR (CLEAR); Bilirubin NEGATIVE (NEGATIVE); Blood NEGATIVE Ery/ul (0-5); Glucose NEGATIVE (NEGATIVE); Ketones NEGATIVE (NEGATIVE); Leukocyte Esterase NEGATIVE (NEGATIVE); Nitrite NEGATIVE (NEGATIVE); Protein,Urine Dip 100 (Negative); Specific Gravity 1.008 (1.005-1.025); Urobilinogen NEGATIVE mg/dL (0-1)
[2021-02-06 17:06] LABS: Eosinophil 2 % (0.00-3.0); Lymphocytes 14 % (24-44); Monocyte 5 % (0.0-12.0); Neutrophils 79 % (36.0-66.0); Total Cells Counted 100
[2021-02-06 17:07] LABS: Platelet Estimate NORMAL (NORMAL)
[2021-02-06] MEDS ORDERED: Lactated Ringers 1,000 ML IV ONE ×2 (18:31→21:32)
[2021-02-06] MEDS ORDERED: Ephedrine Sulfate 50 MG/ML IV PRN (18:31)
[2021-02-06] MEDS ORDERED: XYLOCAINE 1% HCL 20 ML MDV IJ PRN (18:31)
[2021-02-06] MEDS ORDERED: FENTANYL 2 MCG-BUPIV 0.125%-NS 250 ML Epidur 250 ML EPIDURAL SCH (18:45)
[2021-02-06] MEDS ORDERED: PITOCIN 30 UNITS/ LR 500 ML 30 UNITS/500 ML PLAST..BAG IV SCH ×2 (19:00)
[2021-02-06 20:14] LABS: ABO TYPING A
[2021-02-06 20:15] LABS: Antibody Screen NEGATIVE (NEGATIVE); RH TYPING POSITIVE
[2021-02-06 21:21] LABS: Amphetamine,Urine NEGATIVE (NEGATIVE); Barbiturate,Urine NEGATIVE (NEGATIVE); Benzodiazepine,Urine NEGATIVE (NEGATIVE); Cocaine,Urine NEGATIVE (NEGATIVE); Methadone,Urine NEGATIVE (NEGATIVE); Opiate,Urine NEGATIVE (NEGATIVE); PCP,Urine NEGATIVE (NEGATIVE); THC,Urine NEGATIVE (NEGATIVE)
[2021-02-06] MEDS ORDERED: CYTOTEC PO PRN (23:00)
[2021-02-06] MEDS ORDERED: Zofran 4 MG/2 ML VIAL IV PRN (23:01)
[2021-02-06] MEDS ORDERED: STADOL 2 MG IV PRN (23:01)
[2021-02-06] MEDS: Lactated Ringers 1,000 ML IV SCH (23:15)
[2021-02-06] MEDS ORDERED: STADOL 2 MG ONE (23:42)
[2021-02-07] MEDS: TYLENOL EXTRA STRENGTH 500 MG PO PRN ×4 (02:30→22:43)
[2021-02-07] MEDS ORDERED: Lactated Ringers 1,000 ML IV ONE ×3 (02:57→08:00)
[2021-02-07] MEDS ORDERED: XYLOCAINE 1% HCL 20 ML MDV ONE (03:12)
[2021-02-07] MEDS: Lactated Ringers 1,000 ML IV SCH (04:13)
[2021-02-07] MEDS ORDERED: Mylicon 80MG PO PRN (04:30)
[2021-02-07] MEDS ORDERED: TUCKS TP PRN (04:30)
[2021-02-07] MEDS ORDERED: CORTISONE 1% CREAM TP PRN (04:30)
[2021-02-07] MEDS ORDERED: Dulcolax 10 MG SUPP PR PRN (04:30)
[2021-02-07] MEDS ORDERED: Anucort-HC SUPPOSITORY PR PRN (04:30)
[2021-02-07] MEDS: Dermoplast Spray TP PRN ×2 (04:42→20:09)
[2021-02-07] MEDS: MOTRIN 400 MG PO PRN ×3 (04:42→19:57)
[2021-02-07 07:19] VITALS: O2SAT 98
[2021-02-07] MEDS ORDERED: CYTOTEC PO SCH (08:00)
[2021-02-07] MEDS ORDERED: PITOCIN 30 UNITS/ LR 500 ML 30 UNITS/500 ML PLAST..BAG IV SCH (08:00)
[2021-02-07] MEDS: FERREX 150 PO SCH (11:50)
[2021-02-07] MEDS: Colace 100 MG PO SCH ×2 (11:50→19:57)
[2021-02-07 15:19] LABS: Hematocrit 33.5 % (35-47); Hemoglobin 10.3 gm/dl (12.0-16.0); Mean Cell Volume 82.7 fl (78-100); Mean Corpuscular Hemoglobin 25.4 pg (26-32); Mean Corpuscular Hgb Concent. 30.7 g/dl (32-36); Mean Platelet Volume 11.9 fl (7.5-11.0); Platelet Count 320 K/mm3 (150-450); Red Blood Count 4.05 M/mm3 (4.1-5.4); Red Cell Distribution Width 15.1 % (11.5-14.0); White Blood Count 16.3 K/mm3 (4.0-10.5)
[2021-02-07 15:58] LABS: BAND 2 % (0.0-2.0); Lymphocytes 12 % (24-44); Monocyte 4 % (0.0-12.0); Neutrophils 82 % (36.0-66.0); Total Cells Counted 100
[2021-02-07 15:59] LABS: Hypochromia 2+; Platelet Estimate NORMAL (NORMAL)
[2021-02-07 16:00] LABS: Polychromasia 1+
[2021-02-08] MEDS: MOTRIN 400 MG PO PRN ×2 (04:53→17:57)
[2021-02-08 06:31] LABS: Hematocrit 32.8 % (35-47); Hemoglobin 9.7 gm/dl (12.0-16.0); Mean Cell Volume 84.3 fl (78-100); Mean Corpuscular Hemoglobin 24.9 pg (26-32); Mean Corpuscular Hgb Concent. 29.6 g/dl (32-36); Mean Platelet Volume 11.1 fl (7.5-11.0); Platelet Count 268 K/mm3 (150-450); Red Blood Count 3.89 M/mm3 (4.1-5.4); Red Cell Distribution Width 15.2 % (11.5-14.0); White Blood Count 14.5 K/mm3 (4.0-10.5)
--- NOTE | 2021-02-08 07:47 | PCM.NOTE ---
Date and Time: 02/08/2145 Subjective Assessment: ppd 1 sp pt resting in bed and doing well without complaints vss afebrile abd; soft uterus; firm lochia; mild a/p sp ppd 1 hx of preeclampsia dc home today fu office in 3 wks. OBJECTIVE DATA Vital Signs: Vital Signs - 24 hr Temp Pulse Resp BP 02/08/21 03:20 98.2 F 81 18 120/68 02/07/21 20:00 98.4 F 88 16 129/78 02/07/21 14:00 98.3 F 64 18 127/68 02/07/21 08:00 88 18 139/65 Pain Assessment - Last Documented Pain Intensity [Anterior] 8 Pain Intensity 3 Pain Scale Used 0-10 Pain Scale Intake and Output: Intake & Output 02/05/21 02/06/21 02/07/21 02/08/21 11:59 11:59 11:59 11:59 Intake Total 5411 1000 Balance 5411 1000 Weight 90.265 kg Lab Results: Lab Results-Last 24 Hours 02/07/21 02/08/21 Range/Units 14:45 05:30 WBC 16.3 H 14.5 H (4.0-10.5) K/mm3 RBC 4.05 L 3.89 L (4.1-5.4) M/mm3 Hgb 10.3 L 9.7 L (12.0-16.0) gm/dl Hct 33.5 L 32.8 L (35-47) % MCV 82.7 84.3 (78-100) fl MCH 25.4 L 24.9 L (26-32) pg MCHC 30.7 L 29.6 L (32-36) g/dl RDW 15.1 H 15.2 H (11.5-14.0) % Plt Count 320 268 (150-450) K/mm3 MPV 11.9 H 11.1 H (7.5-11.0) fl Segmented Neutrophils 82 H (36.0-66.0) % Band Neutrophils 2 (0.0-2.0) % Lymphocytes (Manual) 12 L (24-44) % Monocytes (Manual) 4 (0.0-12.0) % Hypochromia 2+ Platelet Estimate NORMAL (NORMAL) RBC Morphology ABNORMAL Polychromasia 1+ Assessment/Plan (1) Preeclampsia Current Visit: Yes Status: Acute Code(s): O14.90 - UNSPECIFIED PRE- ECLAMPSIA, UNSPECIFIED TRIMESTER (2) Vaginal delivery Current Visit: Yes Status: Acute Code(s): O80 - ENCOUNTER FOR FULL-TERM UNCOMPLICATED DELIVERY
--- NOTE | 2021-02-08 07:50 | PCM.DS ---
Discharge Summary Date of Admission: 02/07/21 02:45 Admitting Physician: DMITRI BURLESON DO Consults: Consults on Case 02/06/21 18:32 Notify Anesthesia Provider PRN 02/07/21 11:15 Navigation ONCE Primary Care Provider: JENNIFER GIFFORD KAMI Allergies Allergies No Known Drug Allergies Allergy (Verified 02/06/21 20:07) Hospital Summary - Hospital Course Hospital Course: pt admitted on feb 06 for preeclampsia at 38 4/7 wks gestation with noted elevated bp in office and proteinuria. pt was started on cytotec with one vaginal dose and delivered subsequently with that one dose at 315 am. during period pt did well with stablized bp and now stable for discharge. pt had stable hgb level at 9.7 and was advised to fu in office in 3 wks. all questions answered to her satisfaction and was advised to take ibuprofen for pain managment. - Vitals & Intake/Output Vital Signs: Vital Signs Temperature 98.2 F 02/08/21 03:20 Pulse Rate 81 02/08/21 03:20 Respiratory Rate 18 02/08/21 03:20 Blood Pressure 120/68 02/08/21 03:20 O2 Sat by Pulse Oximetry 98 02/07/21 06:30 Intake & Output: Intake & Output 02/05/21 02/06/21 02/07/21 02/08/21 11:59 11:59 11:59 11:59 Intake Total 5411 1000 Balance 5411 1000 Weight 90.265 kg - Lab Result Diagrams: 02/08/21 05:30 02/06/21 14:20 Lab Results-Last 24 Hrs: Lab Results-Last 24 Hours 02/07/21 02/08/21 Range/Units 14:45 05:30 WBC 16.3 H 14.5 H (4.0-10.5) K/mm3 RBC 4.05 L 3.89 L (4.1-5.4) M/mm3 Hgb 10.3 L 9.7 L (12.0-16.0) gm/dl Hct 33.5 L 32.8 L (35-47) % MCV 82.7 84.3 (78-100) fl MCH 25.4 L 24.9 L (26-32) pg MCHC 30.7 L 29.6 L (32-36) g/dl RDW 15.1 H 15.2 H (11.5-14.0) % Plt Count 320 268 (150-450) K/mm3 MPV 11.9 H 11.1 H (7.5-11.0) fl Segmented Neutrophils 82 H (36.0-66.0) % Band Neutrophils 2 (0.0-2.0) % Lymphocytes (Manual) 12 L (24-44) % Monocytes (Manual) 4 (0.0-12.0) % Hypochromia 2+ Platelet Estimate NORMAL (NORMAL) RBC Morphology ABNORMAL Polychromasia 1+ Micro Results-Entire Visit: Microbiology 02/06/21 19:07 Urine Culture - Preliminary Urine, Void NO GROWTH TO DATE Final Diagnosis/Problem List - Final Discharge Diagnosis/Problem (1) Preeclampsia Current Visit: Yes Status: Acute Code(s): O14.90 - UNSPECIFIED PRE- ECLAMPSIA, UNSPECIFIED TRIMESTER (2) Vaginal delivery Current Visit: Yes Status: Acute Code(s): O80 - ENCOUNTER FOR FULL-TERM UNCOMPLICATED DELIVERY - Discharge Disposition: Home, Self-Care Condition: Stable Prescriptions: No Action Aspirin 81 gm Chew [Baby Aspirin 81 mg Chew] 81 mg PO DAILY Vits W-Ca,Fe,FA(<1Mg) [] 1 each PO DAILY Follow up with: JENNIFER GIFFORD MD [Primary Care Provider] - DMITRI BURLESON DO [ACTIVE STAFF] - 3 weeks (should fu in office in 3 wks)
[2021-02-08 09:36] LABS: Eosinophil 2 % (0.00-3.0); Lymphocytes 27 % (24-44); Monocyte 6 % (0.0-12.0); Neutrophils 65 % (36.0-66.0); Total Cells Counted 100
[2021-02-08 09:37] LABS: ANISOCYTOSIS 1+; Platelet Estimate NORMAL (NORMAL)
[2021-02-08] MEDS: Colace 100 MG PO SCH (11:12)
[2021-02-08] MEDS: FERREX 150 PO SCH (11:12)
[2021-02-08] MEDS: TYLENOL EXTRA STRENGTH 500 MG PO PRN (11:12)
[2021-02-08 11:19] VITALS: BP 139/80; PULSE 89
== END 2021-02-08 18:45 | disposition home or self-care (01) | DRG 807 ==
LOC: WHC 12:36 → OB 13:23 → OBSVTOIN 02-07 02:45 → INTOOBSV 02-07 03:45 → OBSVTOIN 02-07 03:45
PROVIDERS: ADMIT Obstetrics & Gynecology; ATTEND Obstetrics & Gynecology
PROC: 10E0XZZ Delivery of Products of Conception, External Approach (ICD-10-PCS; principal; 2021-02-08)
DX: O14.94 Unspecified pre-eclampsia, complicating childbirth (principal); Z37.0 Single live birth; Z3A.38 38 weeks gestation of pregnancy; R80.9 Proteinuria, unspecified
CPT/HCPCS: 36415; 59409; 59425; 80053; 80307; 81001; 81002; 82570; 84156; 84550; 85025; 86850; 86900; 86901; 87086; G0378; J0595; A9270-GY

== ENCOUNTER 2021-06-12 19:32 | Emergency (ER) | payer OTHER ==
[2021-06-12 20:06] VITALS: O2SAT 99
[2021-06-12] MEDS ORDERED: Compazine 10 MG/2 ML IV ONE (20:35)
[2021-06-12] MEDS ORDERED: TORAdol 30 mg Injection IV ONE (20:36)
[2021-06-12] MEDS ORDERED: BENADRYL 50 MG/ML IV ONE (20:36)
[2021-06-12] MEDS ORDERED: Sodium Chloride 0.9% 1000 ML 1,000 ML IV STA (20:37)
[2021-06-12] MEDS ORDERED: TORAdol 30 mg Injection ONE (20:38)
[2021-06-12] MEDS ORDERED: BENADRYL 50 MG/ML ONE (20:38)
[2021-06-12] MEDS ORDERED: Sodium Chloride 0.9% 1000 ML 1,000 ML ONE (20:38)
[2021-06-12] MEDS ORDERED: Compazine 10 MG/2 ML ONE (20:38)
--- NOTE | 2021-06-12 20:43 | ERPHSYRPT ---
- History of Present Illness Time Seen by Provider: 06/12/21 20:10 Source: patient Exam Limitations: no limitations Patient Subjective Stated Complaint: headache/migraine since yesterday Triage Nursing Assessment: pt c/o headache since yesterday mid morning. Pt can feel it pulsating/throbbng in her head, pain is behind her eyes and the back of lower head and neck area. Pt denies any nausea or vomiting. Physician History: Patient 25-year-old female presents to our ED for evaluation of migraine headache. Patient has had a migraine headache for 1 day. Patient has a history of migraine headache. Patient symptoms are typical of her usual migraine headache. No trauma. No fever. No neck pain. Patient has no meningeal signs. Symptoms are mild to moderate in intensity. Patient states the headache is primarily behind her eyes. Pain radiates towards the back of her head. No associated nausea vomiting. No diarrhea. No rash. Patient otherwise healthy. She voices no other complaints or concerns at this time. Timing/Duration: yesterday Quality: aching Head Pain Location: frontal Severity of Pain-Max: moderate Severity of Pain-Current: mild Recent Head Trauma: frequent headaches Modifying Factors: Improves With: noise. Worsens With: position Associated Symptoms: denies symptoms, No confusion, No fever/chills, No loss of consciousness, No nausea/vomiting, No nasal drainage, No numbness in legs/feet, No sweating, No seizures, No stiff neck, No trouble walking, No vision changes, No visual disturbance Previous symptoms: same symptoms as today Allergies/Adverse Reactions: No Known Drug Allergies Allergy (Verified 06/12/21 20:12) Home Medications: Norgestimate-Ethinyl Estradiol [Tri-Linyah Tablet] 1 tab PO DAILY 06/12/21 [History] Venlafaxine HCl [Effexor Xr] 150 mg PO DAILY 06/12/21 [History] Hx Tetanus, Diphtheria Vaccination/Date Given: Yes Hx Influenza Vaccination/Date Given: No Hx Pneumococcal Vaccination/Date Given: No Immunizations Up to Date: Yes Travel Risk - International Travel Have you traveled outside of the country in past 3 weeks: No - Coronavirus Screening Are you exhibiting any of the following symptoms?: No Close contact with a COVID-19 positive Pt in past 14-21 Days: No - Vaccine Status Have you recieved a Covid-19 vaccination: No - Review of Systems Constitutional: No Symptoms, No Fever, No Chills Eyes: No Symptoms Ears, Nose, & Throat: No Symptoms Respiratory: No Symptoms, No Cough, No Dyspnea Cardiac: No Symptoms, No Chest Pain, No Edema, No Syncope Abdominal/Gastrointestinal: No Symptoms, No Abdominal Pain, No Nausea, No Vomiting, No Diarrhea Genitourinary Symptoms: No Symptoms, No Dysuria Musculoskeletal: No Symptoms, No Back Pain, No Neck Pain Skin: No Symptoms, No Rash Neurological: No Symptoms, No Dizziness, No Focal Weakness, No Sensory Changes Psychological: No Symptoms Endocrine: No Symptoms Hematologic/Lymphatic: No Symptoms Immunological/Allergic: No Symptoms All Other Systems: Reviewed and Negative - Past Medical History Pertinent Past Medical History: Yes Neurological History: No Pertinent History ENT History: No Pertinent History Cardiac History: No Pertinent History Respiratory History: No Pertinent History Endocrine Medical History: No Pertinent History Musculoskeletal History: No Pertinent History GI Medical History: Gallbladder Disease, Hemorrhoids History: No Pertinent History Psycho-Social History: Anxiety, Depression, Other Female Reproductive Disorders: Abnormal Uterine Bleeding Other Medical History: PTSD D/T CHILDHOOD - Past Surgical History Past Surgical History: Yes Neuro Surgical History: No Pertinent History Cardiac: No Pertinent History Respiratory: No Pertinent History Gastrointestinal: Cholecystectomy Genitourinary: No Pertinent History Musculoskeletal: No Pertinent History Female Surgical History: No Pertinent History Other Surgical History: TONSILLECTOMY - Social History Smoking Status: Current every day smoker How long have you smoked: 10 yrs Exposure to second hand smoke: Yes Drug Use: none Patient Lives Alone: No - Female History Hx Last Menstrual Period: 06/10/21 Hx Now: No - Nursing Vital Signs Nursing Vital Signs: Initial Vital Signs Temperature 98.6 F 06/12/21 20:05 Pulse Rate 78 06/12/21 20:05 Respiratory Rate 18 06/12/21 20:05 Blood Pressure 145/83 06/12/21 20:05 O2 Sat by Pulse Oximetry 99 06/12/21 20:05 Pain Scale Pain Intensity 0 - Physical Exam General Appearance: no apparent distress Eye Exam: PERRL/EOMI Ears, Nose, Throat Exam: normal ENT inspection, TMs normal, pharynx normal, moist mucous membranes Neck Exam: normal inspection, supple, full range of motion, No meningismus Respiratory Exam: normal breath sounds, lungs clear, airway intact Cardiovascular Exam: regular rate/rhythm, normal heart sounds, normal peripheral pulses Gastrointestinal/Abdominal Exam: soft, normal bowel sounds, No tenderness, No distention Back Exam: normal inspection, normal range of motion Extremity Exam: normal inspection, normal range of motion, pelvis stable Mental Status Exam: alert, oriented x 3, cooperative, 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 Exam: normal hearing, normal speech, PERRL, No abnormal eye position, No facial droop Coordination/Gait Exam: normal finger to nose, normal gait, normal cerebellar function Motor/Sensory Exam: no motor deficit, no sensory deficit, No no pronator drift Skin Exam: normal color, warm, dry, No rash SpO2 Interpretation: normal SpO2: 99 O2 Delivery: Room Air - Course Nursing assessment & vital signs reviewed: Yes Ordered Tests: Active Orders 24 hr Category Date Time Status IV Insertion STAT Care 06/12/21 20:34 Active Medication Summary Discontinued Medications Generic Name Dose Route Start Last Admin Trade Name Freq PRN Reason Stop Dose Admin Diphenhydramine HCl 25 mg 06/12/21 20:36 06/12/21 20:46 Diphenhydramine Hcl 50 Mg/Ml Vial IV 06/12/21 20:37 25 mg STAT ONE Administration Diphenhydramine HCl Confirm 06/12/21 20:38 Diphenhydramine Hcl 50 Mg/Ml Vial Administered 06/12/21 20:39 Dose 50 mg .ROUTE .STK-MED ONE Sodium Chloride 1,000 mls @ 999 mls/hr 06/12/21 20:37 06/12/21 20:46 Sodium Chloride 0.9% 1000 Ml IV 06/12/21 21:37 999 mls/hr .Q1H1M STA Administration Sodium Chloride Confirm 06/12/21 20:38 Sodium Chloride 0.9% 1000 Ml Administered 06/12/21 20:39 Dose 1,000 mls @ ud .ROUTE .STK-MED ONE Ketorolac Tromethamine 30 mg 06/12/21 20:36 06/12/21 20:47 Ketorolac Tromethamine 30 Mg/Ml Inj IV 06/12/21 20:37 30 mg STAT ONE Administration Ketorolac Tromethamine Confirm 06/12/21 20:38 Ketorolac Tromethamine 30 Mg/Ml Inj Administered 06/12/21 20:39 Dose 30 mg .ROUTE .STK-MED ONE Prochlorperazine Edisylate 10 mg 06/12/21 20:35 06/12/21 20:46 Prochlorperazine Edisylate 10 Mg/2 Ml Vial IV 06/12/21 20:36 10 mg STAT ONE Administration Prochlorperazine Edisylate Confirm 06/12/21 20:38 Prochlorperazine Edisylate 10 Mg/2 Ml Vial Administered 06/12/21 20:39 Dose 10 mg .ROUTE .STK-MED ONE - Progress Progress: improved Air Movement: good Progress Note: Patient reassessed. Headache resolved. Repeat neuro exam within normal limits. Patient is ready for discharge. No indication for further work-up at this time. Will discharge home. Patient agrees to follow-up with primary care doctor within 48 hours for evaluation. Portions of this note were created with voice recognition technology. There may be grammatical, spelling, punctuation or sound alike errors 06/12/21 21:42 Blood Culture(s) Obtained: No Antibiotics given: No Counseled pt/family regarding: diagnosis, need for follow-up - Departure Departure Disposition: Home Clinical Impression: Migraine Condition: Stable Critical Care Time: No Referrals: JENNIFER GIFFORD MD [Primary Care Provider] - Follow up/PCP as directed Instructions: Migraines (DC) Additional Instructions: Discharge/Care Plan SHIMON MOYER was seen on 06/12/21 in the Emergency Room. The patient was counseled regarding Diagnosis,Lab results, Imaging studies, need for follow up and when to return to the Emergency Room. Prescriptions given: Discharge Note I have spoken with the patient and/or caregivers. I have explained the patient's condition, diagnosis and treatment plan based on the information available to me at this time. I have answered the patient's and/or caregiver's questions and addressed any concerns. The patient and/or caregivers have as good understanding of the patient's diagnosis, condition and treatment plan as can be expected at this point. The vital signs have been stable. The patient's condition is stable and appropriate for discharge from the emergency department. The patient will pursue further outpatient evaluation with the primary care physician or other designated or consulting physician as outlined in the discharge instructions. The patient and/or caregivers are agreeable to this plan of care and follow-up instructions have been explained in detail. The patient and/or caregivers have received these instruction. The patient/and or caregivers are aware that any significant change in condition or worsening of symptoms should prompt an immediate return to this or the closest emergency department or call 911.
[2021-06-12 21:41] VITALS: BP 123/64; PULSE 86
== END 2021-06-12 21:46 | disposition home or self-care (01) ==
LOC: ED 19:32
DX: G43.909 Migraine, unspecified, not intractable, without status migrainosus (principal); Z72.0 Tobacco use
CPT/HCPCS: 36000; 96374; 96375; 99284; J1200; J1885

== ENCOUNTER 2021-08-11 19:45 | Emergency (ER) | payer OTHER ==
[2021-08-11] MEDS ORDERED: TORAdol 30 mg Injection IM ONE (20:25)
[2021-08-11] MEDS ORDERED: XYLOCAINE VISCOUS 2% 15 ML CUP ONE (20:25)
[2021-08-11] MEDS ORDERED: MAALOX ES 30 ML UNIT DOSE ONE (20:25)
[2021-08-11] MEDS ORDERED: Augmentin 875-125 Tablet PO ONE (20:25)
[2021-08-11] MEDS ORDERED: TORAdol 30 mg Injection ONE (20:27)
[2021-08-11] MEDS ORDERED: Augmentin 875-125 Tablet ONE (20:27)
[2021-08-11] MEDS ORDERED: GI COCKTAIL 45 ML (Maalox/Lidocaine) PO ONE (20:31)
--- NOTE | 2021-08-11 20:32 | ERPHSYRPT ---
- History of Present Illness Time Seen by Provider: 08/11/21 19:56 Source: patient Exam Limitations: no limitations Patient Subjective Stated Complaint: pt states "My tooth broke off today and the pain has not stop. Its throbbing." Triage Nursing Assessment: pt ambulated into the er; pt is axo x4; c/o of toothache; pt states 10/10 pain to left upper jaw; pt states tooth broke this morning; pt has broke upper left molar; cavity present to left upper molar; mucus membrane pink and moist; pt denies fever; vitals wnl Physician History: 26-year-old with history of dental caries presented in the ER with 2 days history of dental pain left upper molar area and this morning it broke off with constant sharp shooting moderate to severe intensity pain, more with swallowing, movements of jaw with some associated swelling of gingiva. No fever or chills reported. Timing/Duration: abrupt onset, days (2) Severity: moderate, severe ENT Location: dental Prearrival Treatment: over the counter meds Associated Symptoms: tooth pain Allergies/Adverse Reactions: No Known Drug Allergies Allergy (Verified 08/11/21 19:54) Home Medications: Norgestimate-Ethinyl Estradiol [Tri-Linyah Tablet] 1 tab PO DAILY 06/12/21 [History] Venlafaxine HCl [Effexor Xr] 150 mg PO DAILY 06/12/21 [History] Hx Tetanus, Diphtheria Vaccination/Date Given: Yes Hx Influenza Vaccination/Date Given: No Hx Pneumococcal Vaccination/Date Given: No Immunizations Up to Date: Yes Travel Risk - International Travel Have you traveled outside of the country in past 3 weeks: No - Coronavirus Screening Are you exhibiting any of the following symptoms?: No Close contact with a COVID-19 positive Pt in past 14-21 Days: No - Vaccine Status Have you recieved a Covid-19 vaccination: No - Review of Systems Constitutional: No Symptoms Eyes: No Symptoms Ears, Nose, & Throat: Loose Teeth Respiratory: No Symptoms Cardiac: No Symptoms Abdominal/Gastrointestinal: No Symptoms Musculoskeletal: No Symptoms Neurological: No Symptoms Endocrine: No Symptoms Hematologic/Lymphatic: No Symptoms Immunological/Allergic: No Symptoms - Past Medical History Pertinent Past Medical History: Yes Neurological History: No Pertinent History ENT History: No Pertinent History Cardiac History: No Pertinent History Respiratory History: No Pertinent History Endocrine Medical History: No Pertinent History Musculoskeletal History: No Pertinent History GI Medical History: Gallbladder Disease, Hemorrhoids History: No Pertinent History Psycho-Social History: Anxiety, Depression, Other Female Reproductive Disorders: Abnormal Uterine Bleeding Other Medical History: PTSD D/T CHILDHOOD - Past Surgical History Past Surgical History: Yes Neuro Surgical History: No Pertinent History Cardiac: No Pertinent History Respiratory: No Pertinent History Gastrointestinal: Cholecystectomy Genitourinary: No Pertinent History Musculoskeletal: No Pertinent History Female Surgical History: No Pertinent History Other Surgical History: TONSILLECTOMY - Social History Smoking Status: Current every day smoker How long have you smoked: 10 yrs Exposure to second hand smoke: Yes Drug Use: none Patient Lives Alone: No - Female History Hx Now: No - Nursing Vital Signs Nursing Vital Signs: Initial Vital Signs Temperature 97 F 08/11/21 19:55 Pulse Rate 88 08/11/21 19:55 Respiratory Rate 18 08/11/21 19:55 Blood Pressure 140/77 08/11/21 19:55 O2 Sat by Pulse Oximetry 99 08/11/21 19:55 Pain Scale Pain Intensity 10 - Physical Exam General Appearance: no apparent distress, alert Eye Exam: bilateral eye: normal inspection, PERRL, EOMI Ear Exam: bilateral ear: auricle normal, canal normal, TM normal Nasal Exam: normal inspection Throat Exam: normal, pharynx normal, dental tenderness (Left upper molar and premolar with periodontal gingival swelling/tenderness with no fluctuation.) Neck Exam: normal inspection, non-tender, supple, full range of motion, trachea midline Cardiovascular/Respiratory Exam: normal breath sounds, regular rate/rhythm Neurologic Exam: alert, oriented x 3, cooperative, 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 tested Skin Exam: normal color SpO2 Interpretation: normal SpO2: 99 O2 Delivery: Room Air Ordered Tests: Medication Summary Discontinued Medications Generic Name Dose Route Start Last Admin Trade Name Freq PRN Reason Stop Dose Admin Al Hydrox/Mg Hydrox/Simethicone Confirm 08/11/21 20:25 Mag Hydrox/Al Hydrox/Simeth 30 Ml Udcup Administered 08/11/21 20:26 Dose 30 ml .ROUTE .STK-MED ONE Amoxicillin/Clavulanate Potassium 875 mg 08/11/21 20:25 Amox Tr/Potassium Clavulanate 875 Mg Tablet PO 08/11/21 20:26 STAT ONE Ketorolac Tromethamine 30 mg 08/11/21 20:25 Ketorolac Tromethamine 30 Mg/Ml Inj IM 08/11/21 20:26 STAT ONE Lidocaine HCl Confirm 08/11/21 20:25 Lidocaine Hcl 2% Viscous 15 Ml Udcup Administered 08/11/21 20:26 Dose 15 ml .ROUTE .STK-MED ONE - Progress Progress: pain not gone completely Progress Note: 08/11/21 20:31 Given symptomatic treatment for pain, given Toradol for symptomatic relief, started on antibiotics, dental balls for local anesthesia and outpatient dental follow-up recommended 08/11/21 20:33 Counseled pt/family regarding: diagnosis, need for follow-up - Departure Departure Disposition: Home Clinical Impression: Dental infection Condition: Stable Critical Care Time: No Referrals: JENNIFER GIFFORD MD [Primary Care Provider] - Follow Up with PCP/3 days MINDY GIRON DDS [NON-STAFF PHY W/O PRIVILEGES] - Follow up/PCP as directed (In 3 days for reevaluation) Instructions: Tooth Abscess (DC), Dental Pain (DC) Additional Instructions: Take Tylenol/ibuprofen as needed. Follow-up with dentist for reevaluation. Return to ER for any worsening pain swelling or if having fever chills etc. Prescriptions: Ibuprofen 600 mg PO Q6HPRN PRN 10 Days #20 tablet PRN Reason: Pain Amox Tr/Potass Clav. 875 mg [Augmentin 875-125 Tablet] 875 mg PO BID #14 tablet
[2021-08-11] MEDS ORDERED: CETACAINE SPRAY TP ONE (20:45)
[2021-08-11 21:05] VITALS: BP 120/60; PULSE 79; O2SAT 97
== END 2021-08-11 21:00 | disposition home or self-care (01) ==
LOC: ED 19:45
DX: K04.7 Periapical abscess without sinus (principal); K02.9 Dental caries, unspecified; Z72.0 Tobacco use; Z28.310 Unvaccinated for COVID-19
CPT/HCPCS: 96372; 99284; J1885; A9270-GY

== ENCOUNTER 2021-09-01 12:39 | Emergency (ER) | payer OTHER ==
[2021-09-01] MEDS ORDERED: TORAdol 30 mg Injection IM ONE (13:01)
--- NOTE | 2021-09-01 13:12 | ERPHSYRPT ---
- History of Present Illness Source: patient Exam Limitations: no limitations Patient Subjective Stated Complaint: Fall Triage Nursing Assessment: Patient ambulated back to ED and transferred self to bed. Patient A+O x 3. Patient's skin pink, warm and dry. Patient states she was going down her porch stairs and slipped falling down 3 stairs. Patient complains of right lower back/ hip pain and left lower and upper arm pain 9/10. Physician History: 26 yo wf slipped and fell down 3-4 steps at home before arrival. Pt complains of L forearm pain/L hip,L CVA, and L flank pain. LOC/headache/cervical pain/chest pain/lower extremity pain/ all denied. Occurred: just prior to arrival Reason for Fall: slipped Injuries/Pain Location: upper extremity (L forearm), back Loss of Consciousness: no loss of consciousness Quality: aching Severity of Pain-Max: severe Severity of Pain-Current: severe Modifying Factors: Improves With: movement Associated Symptoms (Fall): abdominal pain, back pain, extremity injury, No co nfusion, No chest pain, No dizziness, No headache, No lightheadedness, No muscle spasms, No nausea, No neck pain, No ringing in ears, No seizures, No shortness of breath, No slurred speech, No trouble walking, No vomiting, No vision changes Allergies/Adverse Reactions: No Known Drug Allergies Allergy (Verified 09/01/21 12:47) Home Medications: Norgestimate-Ethinyl Estradiol [Tri-Linyah Tablet] 1 tab PO DAILY 06/12/21 [History] Venlafaxine HCl [Effexor Xr] 150 mg PO DAILY 06/12/21 [History] Hx Tetanus, Diphtheria Vaccination/Date Given: Yes Hx Influenza Vaccination/Date Given: No Hx Pneumococcal Vaccination/Date Given: No Immunizations Up to Date: Yes Travel Risk - International Travel Have you traveled outside of the country in past 3 weeks: No - Coronavirus Screening Are you exhibiting any of the following symptoms?: No Close contact with a COVID-19 positive Pt in past 14-21 Days: No - Vaccine Status Have you recieved a Covid-19 vaccination: No - Review of Systems Constitutional: No Symptoms Eyes: No Symptoms Ears, Nose, & Throat: No Symptoms Respiratory: No Symptoms Cardiac: No Symptoms Abdominal/Gastrointestinal: No Symptoms, Abdominal Pain Genitourinary Symptoms: No Symptoms, Flank Pain Musculoskeletal: No Symptoms, Arthralgias Skin: No Symptoms Neurological: No Symptoms Psychological: No Symptoms Endocrine: No Symptoms Hematologic/Lymphatic: No Symptoms Immunological/Allergic: No Symptoms - Past Medical History Pertinent Past Medical History: Yes Neurological History: No Pertinent History ENT History: No Pertinent History Cardiac History: No Pertinent History Respiratory History: No Pertinent History Endocrine Medical History: No Pertinent History Musculoskeletal History: No Pertinent History GI Medical History: Gallbladder Disease, Hemorrhoids History: No Pertinent History Psycho-Social History: Anxiety, Depression, Other Female Reproductive Disorders: Abnormal Uterine Bleeding Other Medical History: PTSD D/T CHILDHOOD - Past Surgical History Past Surgical History: Yes Neuro Surgical History: No Pertinent History Cardiac: No Pertinent History Respiratory: No Pertinent History Gastrointestinal: Cholecystectomy Genitourinary: No Pertinent History Musculoskeletal: No Pertinent History Female Surgical History: No Pertinent History Other Surgical History: TONSILLECTOMY - Social History Smoking Status: Current every day smoker How long have you smoked: 10 yrs Exposure to second hand smoke: Yes Drug Use: none Patient Lives Alone: No Significant Family History: no pertinent family hx - Female History Hx Last Menstrual Period: last week Hx Now: No - Nursing Vital Signs Nursing Vital Signs: Initial Vital Signs Temperature 97.1 F 09/01/21 12:49 Pulse Rate 98 H 09/01/21 12:49 Respiratory Rate 18 09/01/21 12:49 Blood Pressure 140/82 09/01/21 12:49 O2 Sat by Pulse Oximetry 99 09/01/21 12:49 Pain Scale Pain Intensity 7 Hypertensive - Mary Coma Score Best Eye Response (Sidney): (4) open spontaneously Best Verbal Response (Sidney): (5) oriented Best Motor Response (Mary): (6) obeys commands Mary Total: 15 - Physical Exam General Appearance: no apparent distress Head Injury: no evidence of injury Eye Exam: PERRL/EOMI, eyes nml inspection ENT Exam: airway nml, No evidence of ENT injury, No clear fluid (ears), No clear fluid (nose) Neck Exam: supple, trachea midline, full range of motion, normal inspection (C- spine NTTP) Respiratory/Chest Exam: normal breath sounds, No chest tenderness, No respiratory distress, No ecchymosis, No crepitus, No decreased breath sounds Cardiovascular Exam: normal heart sounds, regular rate/rhythm, normal peripheral pulses, No murmur Gastrointestinal Exam: soft, normal bowel sounds, tenderness (Mild L flank TTP) Back Exam: CVA tenderness (L CVA TTP), vertebral tenderness (L-spine mildly TTP) Extremity Exam: capillary refill <3 sec, pelvis stable, other (L forearm TTP/Mild edema/Good radial pulse, distal sensation, and capillary return) Neurologic Exam: alert, oriented x 3, cooperative, athlete marketing agent II-XII nml as tested, normal mood/affect, nml cerebellar function, nml station & gait, sensation nml Skin Exam: normal color, warm, dry, No rash SpO2 Interpretation: normal SpO2: 99 O2 Delivery: Room Air - Course Nursing assessment & vital signs reviewed: Yes - Radiology Exams Forearm X-ray Interpretation: Discussed w/ radiologist (L forearm neg per Rad) - CT Exams Abdomen/Pelvis CT Interpretation: Discussed w/radiologist (B ovarian cysts/Nothing acute) Ordered Tests: Active Orders 24 hr Category Date Time Status ABDOMEN AND PELVIS W/0 CONTRAS [CT] Stat Exams 09/01/21 13:31 Completed FOREARM Stat Exams 09/01/21 13:23 Completed Medication Summary Discontinued Medications Generic Name Dose Route Start Last Admin Trade Name Freq PRN Reason Stop Dose Admin Ketorolac Tromethamine 30 mg 09/01/21 13:01 09/01/21 13:24 Ketorolac Tromethamine 30 Mg/Ml Inj IM 09/01/21 13:02 30 mg STAT ONE Administration Ketorolac Tromethamine Confirm 09/01/21 13:17 Ketorolac Tromethamine 30 Mg/Ml Inj Administered 09/01/21 13:18 Dose 30 mg .ROUTE .STK-MED ONE - Progress Progress: improved Progress Note: 09/01/21 14:27 30mg IM Toradol w improvement in pain Counseled pt/family regarding: diagnosis, need for follow-up, rad results - Departure Departure Disposition: Home Clinical Impression: Contusion of forearm, left, Back contusion Condition: Stable Critical Care Time: No Referrals: JENNIFER GIFFORD MD [Primary Care Provider] - Follow up/PCP as directed Instructions: Contusion (DC) Additional Instructions: Ice for 12-24 hours Lodine as needed for pain Follow up with your family MD for continued pain Prescriptions: Etodolac 400 mg [Lodine 400 mg] 400 mg PO TID PRN PRN #10 tablet PRN Reason: Pain
[2021-09-01] MEDS ORDERED: TORAdol 30 mg Injection ONE (13:17)
--- NOTE | 2021-09-01 13:39 | XRAY ---
Indication: Contusion following fall. Comparison: None 2 view left forearm demonstrates normal bones, articulation, and soft tissues.
--- NOTE | 2021-09-01 13:49 | XRAY ---
Indication: Left costophrenic angle/left flank pain following fall. Multiple contiguous axial images obtained through the abdomen and pelvis without contrast. Graft comparison: None Lung bases demonstrates moderate dependent atelectasis. No infiltrate or effusion. Heart not enlarged. Noncontrasted stomach and bowel loops appear nonobstructed with normal appendix. Prominent 3.8 cm right and 3.3 cm left ovary cysts. No free fluid/air. Previous cholecystectomy. Liver demonstrates prominent right lobe favoring Ian's lobe. Remaining liver, pancreas, spleen, adrenal glands, kidneys, ureters, bladder, and aorta are unremarkable for noncontrast exam. Osseous structures intact. No ventral or inguinal hernias. Impression: 1. Prominent bilateral ovaries cysts. Pelvic sonogram may yield further information if clinically warranted. 2. Remaining CT abdomen/pelvis without contrast exam is negative.
[2021-09-01 14:58] VITALS: BP 118/72; PULSE 94
[2021-09-01 18:52] VITALS: O2SAT 99
== END 2021-09-01 14:45 | disposition home or self-care (01) ==
LOC: ED 12:39
DX: S50.12XA Contusion of left forearm, initial encounter (principal); S30.0XXA Contusion of lower back and pelvis, initial encounter; W10.8XXA Fall (on) (from) other stairs and steps, initial encounter; M79.632 Pain in left forearm; M54.50 Low back pain, unspecified; M25.552 Pain in left hip; R10.9 Unspecified abdominal pain; Z72.0 Tobacco use; Z79.899 Other long term (current) drug therapy; Z28.310 Unvaccinated for COVID-19
CPT/HCPCS: 73090; 74176; 96372; 99283; J1885